=== PATIENT | female | born 1975 | race Caucasian/White ===

== ENCOUNTER 2016-08-14 09:58 | Outpatient (CLI) ==
[2014-12-02 00:26] VITALS: BMI 24.5
[2016-08-14 13:00] LABS: BASOPHILS % (AUTO) 0.6 % (0.0-3.0); EOSINOPHILS # (AUTO) 0.1 K/ul (0.0-0.7); HEMATOCRIT 34.9 % (37.0-47.0); HEMOGLOBIN 11.4 g/dl (12.0-16.0); IMMATURE GRANULOCYTE % (AUTO) 0.2 % (0.0-5.0); LYMPHOCYTES # (AUTO) 1.4 K/uL (0.60-3.4); LYMPHOCYTES % (AUTO) 20.7 (10.0-50.0); MEAN CORPUSCULAR HEMOGLOBIN 27.2 pg (27.0-31.0); MEAN CORPUSCULAR HGB CONC 32.7 (31.8-35.4); MEAN CORPUSCULAR VOLUME 83.3 fl (81.0-99.0); MONOCYTES # (AUTO) 0.3 K/uL (0.4-2.0); NEUTROPHILS # (AUTO) 4.7 K/ul (2.0-6.9); NEUTROPHILS % (AUTO) 71.5; PLATELET COUNT 234 10^3/uL (140-440); RED BLOOD COUNT 4.19 10^6/ul (4.20-5.40); WHITE BLOOD COUNT 6.56 K/ul (4.6-10.2)
[2016-08-14 13:53] LABS: ALBUMIN 3.8 g/dL (3.4-5.0); ALBUMIN/GLOBULIN RATIO 1.19; ANION GAP 11.8; BILIRUBIN,TOTAL 0.36 mg/dL (0.00-1.20); BUN/CREATININE RATIO 20.77; CALCIUM 9.1 mg/dL (8.2-10.2); CHOL/HDL RATIO 3.2 (4.5-5.5); CREATININE 0.77 mg/dL (0.60-1.30); POTASSIUM 3.8 mmol/L (3.5-5.10)
== END 2016-08-14 09:59 | disposition home or self-care (01) ==
LOC: LAB 09:58
PROVIDERS: ATTEND Nurse Practitioner Family
DX: I10 Essential (primary) hypertension (principal); E03.9 Hypothyroidism, unspecified
CPT/HCPCS: 36415; 80053; 80061; 84443; 85025

== ENCOUNTER 2016-08-25 12:21 | Emergency (ER) ==
[2016-08-25 12:34] VITALS: BP 176/95; TEMP 99.9; BMI 25.0
--- NOTE | 2016-08-25 12:45 | ED.PDOC ---
General ED Provider: Dr. LEONIDAS GRACE JR Chief Complaint: Hypertension Stated Complaint: HAVING BP PROBLEMS AND PCP IS TRYING TO STABLIZE HER WITH MEDICATION [ End ]99.9 65 16 98% 176/95 9/10 5AM ATE AND SIP OF [place]PS[place] THIS MORNIN Time Seen by Physician: 12:45 Mode of Arrival: Walk-In Information Source: Patient Exam Limitations: No limitations [facility] Triage Documentation Reviewed and Agree: No Review of Systems - Review Of Systems Constitutional: Reports: Malaise Eyes: Reports: Photophobia Ears, Nose, Mouth, Throat: Reports: No symptoms GI: Reports: No symptoms : Reports: No symptoms Musculoskeletal: Reports: No symptoms Skin: Reports: No symptoms Neurological: Reports: Headache Endocrine: Reports: No symptoms Hematologic/Lymphatic: Reports: No symptoms All Other Systems: Other Past Medical History - Past Medical History Endocrine: Reports: None Cardiovascular: Reports: None, Hypertension Respiratory: Reports: None Hematological: Reports: Anemia Gastrointestinal: Reports: None Genitourinary: Reports: None Neuro/Psych: Reports: Migraine, Anxiety, Depression, Bipolar Disorder Musculoskeletal: Reports: Back Pain (chronic from scoliosis) Cancer: Reports: None Last Menstrual Period: STARTED WEDNESDAY Other Pertinent Past Medical History: scoliosis - Surgical History General Surgical History: Reports: Other (D and C , bracing for scoliosis) - Family History Family History: Reports: Other (migrane ) - Social History Smoking Status: Current some day smoker Hx Substance Use: No Alcohol Screening: None - Immunizations Tetanus Shot up to Date: Yes Physical Exam - Physical Exam Appearance: Well-appearing Pain Distress: Moderate Eyes: REJI, EOMI, Conjunctiva clear ENT: Ears normal, Nose normal, Oropharynx normal Neck: Supple Respiratory: Airway patent, Breath sounds clear, Breath sounds equal, Respirations nonlabored Cardiovascular: RRR, Pulses normal, No rub, No murmur GI/: Soft, Nontender, No masses, Bowel sounds normal, No Organomegaly Musculoskeletal: Normal strength, ROM intact, No edema, No calf tenderness Skin: Warm, Dry, Normal color Neurological: Sensation intact, Motor intact, Reflexes intact, Cranial nerves intact, Alert, Oriented Psychiatric: Affect appropriate, Mood appropriate Critical Care Note - Critical Care Note Total Time (mins): 20 Course - Course Orders, Labs, Meds: Orders Category Date Time Status UA [URINALYSIS C & S IF INDICATED] Stat LAB 08/25/16 14:43 Ordered Hydrocodone Bit/Acetaminophen [Grady 7.5-325] MEDS 08/25/16 14:10 Discontinued 1 tab PO ONCE STA Labetalol HCl [Trandate] MEDS 08/25/16 12:59 Discontinued 100 mg PO ONCE STA Morphine Sulfate [Morphine 4 mg/ml Syringe] MEDS 08/25/16 13:03 Discontinued 4 mg IM ONCE STA Ondansetron HCl/Pf [Zofran 4 mg/2 ml] MEDS 08/25/16 13:03 Discontinued 4 mg IM ONCE STA CT HEAD W/O CONTRAST Stat RADS 08/25/16 13:03 Completed Medications Discontinued Medications Generic Name Dose Route Start Last Admin Trade Name Monse PRN Reason Stop Dose Admin Acetaminophen/Hydrocodone Bitart 1 tab 08/25/16 14:10 08/25/16 14:20 Grady 7.5-325 PO 08/25/16 14:11 1 tab ONCE STA Administration Labetalol HCl 100 mg 08/25/16 12:59 08/25/16 13:15 Trandate PO 08/25/16 13:00 100 mg ONCE STA Administration Morphine Sulfate 4 mg 08/25/16 13:03 08/25/16 13:18 Morphine 4 Mg/Ml Syringe IM 08/25/16 13:04 4 mg ONCE STA Administration Ondansetron HCl 4 mg 08/25/16 13:03 08/25/16 13:19 Zofran 4 Mg/2 Ml IM 08/25/16 13:04 4 mg ONCE STA Administration Vital Signs: Temp Pulse Resp BP Pulse Ox 08/25/16 12:26 99.9 F H 65 16 176/95 H 98 KARLA Risk Score KARLA Risk Score: Risk Score Odds of by 30D 0 0.1 (0.1-0.2) 1 0.3 (0.2-0.3) 2 0.4 (0.3-0.5) 3 0.7 (0.6-0.9) 4 1.2 (1.0-1.5) 5 2.2 (1.9-2.6) 6 3.0 (2.5-3.6) 7 4.8 (3.8-6.1) Departure - Departure Time of Disposition: 14:57 Disposition: HOME SELF-CARE Discharge Problem: Headache Qualifiers: Headache type: other complicated headache syndrome Qualifier Code: (G44.59) Other complicated headache syndrome Hypertension Qualifiers: Hypertension type: essential hypertension Qualifier Code: (I10) Essential ( primary) hypertension Instructions: Migraine Headache (ED), Chronic Hypertension (ED) Condition: Good Pt referred to PMD for follow-up: Yes Additional Instructions: hold lisinopril continue verapamil labetolol twice a day for blood pressure check blood pressure daily and record may try gabapentin for headaches may need to increase dose after two weeks-take only as needed Prescriptions: Gabapentin 300 mg PO TID PRN #30 capsule PRN Reason: PAIN Labetalol HCl [Trandate] 100 mg PO BID #60 tablet Allergies/Adverse Reactions: Allergies acetaminophen [From Tylenol PM] Adverse Reaction (Verified 08/25/16 12:36) diphenhydramine HCl [From Tylenol PM] Adverse Reaction (Verified 08/25/16 12:36) tramadol HCl [From Ultram] Adverse Reaction (Verified 08/25/16 12:36) Home Medications: Ambulatory Orders Promethazine HCl [Phenergan Tab] 25 mg PO Q6H PRN #15 tablet 12/02/14 Gabapentin 300 mg PO TID PRN #30 capsule 08/25/16 Labetalol HCl [Trandate] 100 mg PO BID #60 tablet 08/25/16
[2016-08-25] MEDS ORDERED: TRANDATE PO STA (12:59)
[2016-08-25] MEDS ORDERED: ZOFRAN 4 MG/2 ML IM STA (13:03)
[2016-08-25] MEDS ORDERED: MORPHINE 4 MG/ML SYRINGE IM STA (13:03)
--- NOTE | 2016-08-25 13:58 | CT ---
EXAM: CT of the head without contrast History: Headache. Comparison: Brain MRI 04/07/2013 Technique: Multiplanar CT images through the head were obtained without the administration of IV co ntrast Findings: The visualized paranasal sinuses and mastoid air cells are clear in general. No acute ca lvarial abnormalities. Intracranially the ventricular and cisternal spaces are normal in size, shape and configuration for a patient of this age. No dominant mass or midline shift. No hydrocephalous. No acute intracrania l hemorrhage or abnormal extraaxial fluid collections. Impression: No acute intracranial process.
[2016-08-25] MEDS ORDERED: NORCO 7.5-325 PO STA (14:10)
[2016-08-25 15:03] LABS: BILIRUBIN,URINE Negative (NEGATIVE); KETONES,URINE Trace (NEGATIVE); LEUKOCYTE ESTERASE ,URINE Negative (NEGATIVE); NITRITE,URINE Negative (NEGATIVE); PROTEIN,URINE Negative (NEGATIVE); URINE, BLOOD Negative (NEGATIVE)
[2016-08-25 15:18] LABS: ADD URINE MICROSCOPIC NO
== END 2016-08-25 15:50 | disposition home or self-care (01) ==
LOC: ED 12:21
DX: G44.59 Other complicated headache syndrome (principal); I10 Essential (primary) hypertension; F17.210 Nicotine dependence, cigarettes, uncomplicated; Z79.899 Other long term (current) drug therapy
CPT/HCPCS: 81001; 96372; 99283

== ENCOUNTER 2016-11-19 18:22 | Emergency (ER) ==
[2016-11-19 18:30] VITALS: BP 158/106; TEMP 99; BMI 25.9
[2016-11-19] MEDS ORDERED: MORPHINE 10 MG/ML SYRINGE IM STA (18:46)
--- NOTE | 2016-11-19 18:48 | ED.PDOC ---
General ED Provider: Dr. FABI LINDSEY Chief Complaint: Hypertension Stated Complaint: headache Time Seen by Physician: 18:30 Mode of Arrival: Walk-In Information Source: Patient Exam Limitations: No limitations Primary [facility] Nursing and Triage Documentation Reviewed and Agree: Yes Neurological Complaint Exam - Headache Complaint/Exam Onset: Gradual Duration: today Symptoms Are: Still present Timing: Intermittent Worst Headache Ever: No Initial Severity: Moderate Current Severity: Moderate Location: Right, Left, Frontal Character: Reports: Dull Aggravating: Reports: None Alleviating: Reports: None Associated Signs and Symptoms: Denies: Dizziness, Seizure, Nausea, Vomiting, Sinus pressure, Fever, Neck pain, Neck stiffness, Decreased LOC, Visual changes Related History: Reports: Similar episode Related Surgical History: Reports: None SAH Risk Factors: Reports: None Meningitis Risk Factors: Reports: None SDH Risk Factors: Reports: None Temporal Arteritis Risk Factors: Reports: None Normal Head CT Within Last 12 Months: No Papilledema Present: Yes Temporal Artery Tenderness: Present: None Sinus Tenderness: Present: None TMJ Tenderness: Present: None Glascow Coma Scale (see protocol): 15 Meningeal Signs Positive: No ROM Limited In: No Limitiations Focal Sensory Loss: Present: None Gait: Normal Nystagmus Present: No Gag Reflex Present: Yes [id number]: Normal Findings Babinski Sign: Negative Right, Negative Left Differential Diagnoses: Migraine Review of Systems - Review Of Systems Constitutional: Reports: No symptoms Eyes: Reports: No symptoms Ears, Nose, Mouth, Throat: Reports: No symptoms Respiratory: Reports: No symptoms Cardiac: Reports: No symptoms GI: Reports: No symptoms : Reports: No symptoms Musculoskeletal: Reports: No symptoms Skin: Reports: No symptoms Neurological: Reports: Headache Endocrine: Reports: No symptoms Hematologic/Lymphatic: Reports: No symptoms All Other Systems: Reviewed and Negative Past Medical History - Past Medical History Previously Healthy: Yes Endocrine: Reports: None Cardiovascular: Reports: None, Hypertension Respiratory: Reports: None Hematological: Reports: Anemia Gastrointestinal: Reports: None Genitourinary: Reports: None Neuro/Psych: Reports: Migraine, Anxiety, Depression, Bipolar Disorder Musculoskeletal: Reports: Back Pain (chronic from scoliosis) Cancer: Reports: None Last Menstrual Period: 11/17/16 Other Pertinent Past Medical History: scoliosis - Surgical History General Surgical History: Reports: Other (D and C , bracing for scoliosis) - Family History Family History: Reports: Other (migrane ) - Social History Smoking Status: Current some day smoker Hx Substance Use: No Alcohol Screening: None Physical Exam - Physical Exam Appearance: Well-appearing, No pain distress, Well-nourished Eyes: REJI, EOMI, Conjunctiva clear ENT: Ears normal, Nose normal, Oropharynx normal Respiratory: Airway patent, Breath sounds clear, Breath sounds equal, Respirations nonlabored Cardiovascular: RRR, Pulses normal, No rub, No murmur GI/: Soft, Nontender, No masses, Bowel sounds normal, No Organomegaly Musculoskeletal: Normal strength, ROM intact, No edema, No calf tenderness Skin: Warm, Dry, Normal color Neurological: Sensation intact, Motor intact, Reflexes intact, Cranial nerves intact, Alert, Oriented Psychiatric: Affect appropriate, Mood appropriate Critical Care Note - Critical Care Note Total Time (mins): 0 Course - Course Vital Signs: Temp Pulse Resp BP Pulse Ox 11/19/16 18:24 99.0 F 106 H 20 158/106 H 98 Departure - Departure Time of Disposition: 18:48 Disposition: HOME SELF-CARE Discharge Problem: Hypertension Headache Qualifiers: Headache type: unspecified Headache chronicity pattern: unspecified pattern Instructions: Hypertension (ED), Migraine Headache (ED) Condition: Good Pt referred to PMD for follow-up: Yes Allergies/Adverse Reactions: Allergies diphenhydramine HCl [From Tylenol PM] Adverse Reaction (Verified 08/25/16 12:36) tramadol HCl [From Ultram] Adverse Reaction (Verified 08/25/16 12:36) Home Medications: Ambulatory Orders Promethazine HCl [Phenergan Tab] 25 mg PO Q6H PRN #15 tablet 12/02/14 Gabapentin 300 mg PO TID PRN #30 capsule 08/25/16 Labetalol HCl [Trandate] 100 mg PO BID #60 tablet 08/25/16
== END 2016-11-19 19:18 | disposition home or self-care (01) ==
LOC: ED 18:22
DX: I10 Essential (primary) hypertension (principal); R51 Headache; F17.210 Nicotine dependence, cigarettes, uncomplicated
CPT/HCPCS: 96372; 99282

== ENCOUNTER 2016-11-20 11:43 | Outpatient (CLI) ==
[2016-11-19 18:30] VITALS: BMI 25.9
--- NOTE | 2016-11-20 13:32 | US ---
EXAM: Thyroid ultrasound History: Thyroid tenderness, enlarged thyroid. Technique: Multiple sonographic images through the thyroid gland were obtained. Color duplex Dopple r was used to interrogate vascular flow. Findings: The right lobe of the thyroid measures 4.0 cm x 2.0 cm x 1.1 cm. No right thyroid nodules identified. The thyroid isthmus measures 0.2 cm in thickness. The left lobe of the thyroid measures 4.1 cm x 1.4 cm x 1.0 cm. No left thyroid nodules identified. No extrathyroidal masses. The thyroid gland is not hypervascular. Impression: Normal thyroid ultrasound.
== END 2016-11-20 11:44 | disposition home or self-care (01) ==
LOC: RAD 11:43
PROVIDERS: ATTEND Physician Assistant
DX: M54.2 Cervicalgia (principal); I10 Essential (primary) hypertension
CPT/HCPCS: 93005; 93010

== ENCOUNTER 2016-11-23 06:33 | Outpatient (CLI) ==
--- NOTE | 2016-11-23 08:22 | ECHO2D ---
Date of Exam: 11/23/16 Ordering Physician: FRANCISCO MUJICA Room #: OP Reason for Echo: HYPERTENSIVE DISORDER M-Mode Normal Adult Results LV Dimensions Normal Adult Results AoV Opening excursions >1.6 >1.6 LVEDD-base- 3.5-5.8 4.3 Ao root dimensions 2.0-3.7 3.7 LVESD-base- 3.1-4.6 L. Atrium dimensions 1.9-3.8 3.1 Post. Wall thickness 0.8-1.1 1.2 IV septum (thickness) 0.7-1.2 1.2 Post. Wall excursion 0.72-1.3 NORMAL Septal motion NORMAL Systolic motion R. Ventricular cavity 1.5-2.0 NORMAL LVEF 60% 50-55% Paradoxical septal wall motion NORMAL 2-D : 2-D M Mode Echocardiogram was performed using apical four chamber and left parasternal long and short axis views. Mitral, tricuspid and aortic valves appear to be normal. Contractility of the left ventricle seems to be normal, so is the cavity size. Left atrial cavity size and aortic root appear to be normal. There is no pericardial effusion. There is no thrombus noted in the left ventricular or left aortic cavity. No mitral valve prolapse noted. M-MODE: MV: NORMAL AV: NORMAL TV: NORMAL PV: CHAMBER SIZE: NORMAL WALL MOTION: NORMAL PERICARDIUM: NORMAL INTERPRETATION: 1. BORDERLINE LEFT VENTRICULAR HYPERTROPHY 2. NORMAL LEFT VENTRICULAR CONTRACTILITY 3. NORMAL VALVES 4. NORMAL LEFT ATRIAL AND LEFT VENTRICLE SIZE MTDD
== END 2016-11-23 06:34 | disposition home or self-care (01) ==
LOC: CAR 06:33
PROVIDERS: ATTEND Physician Assistant
DX: I10 Essential (primary) hypertension (principal)

== ENCOUNTER 2017-05-05 08:46 | Outpatient (CLI) | END 2017-05-05 08:47 | disposition home or self-care (01) | LOC: LAB 08:46 | PROVIDERS: ATTEND Internal Medicine Endocrinology, Diabetes & Metabolism | DX: R35.8 Other polyuria (principal); R53.83 Other fatigue; R61 Generalized hyperhidrosis; I10 Essential (primary) hypertension; T14.8XXA Other injury of unspecified body region, initial encounter | CPT/HCPCS: 36415; 81001; 82670; 83001; 83002; 83036; 84439; 84443 ==

== ENCOUNTER 2017-05-12 13:53 | Outpatient (CLI) | END 2017-05-12 13:54 | disposition home or self-care (01) | LOC: LAB 13:53 | PROVIDERS: ATTEND Internal Medicine Endocrinology, Diabetes & Metabolism | DX: T14.8XXA Other injury of unspecified body region, initial encounter (principal) | CPT/HCPCS: 36415 ==

== ENCOUNTER 2017-08-20 19:57 | Outpatient (CLI) | END 2017-08-20 19:58 | disposition home or self-care (01) | LOC: LAB 19:57 | PROVIDERS: ATTEND Physician Assistant | DX: F33.9 Major depressive disorder, recurrent, unspecified (principal); Z51.81 Encounter for therapeutic drug level monitoring; Z79.899 Other long term (current) drug therapy | CPT/HCPCS: 36415; 80335; 93005; 93010 ==

== ENCOUNTER 2017-12-09 08:25 | Outpatient (CLI) | END 2017-12-09 08:26 | disposition home or self-care (01) | LOC: CAR 08:25 | PROVIDERS: ATTEND Physician Assistant | DX: Z51.81 Encounter for therapeutic drug level monitoring (principal) | CPT/HCPCS: 36415; 80053; 80178; 84443; 85025; 93005; 93010 ==

== ENCOUNTER 2017-12-31 14:39 | Outpatient (CLI) ==
--- NOTE | 2017-12-31 15:35 | DI ---
EXAM: PA and lateral views of the chest HISTORY: Cough. COMPARISON: Chest x-ray 05/30/2015 FINDINGS: The cardiomediastinal silhouette is normal. There is no pneumothorax or pleural effusion. There is no consolidation, nodule or mass. The osseous structures are unremarkable. IMPRESSION: No acute cardiopulmonary process
== END 2017-12-31 14:40 | disposition home or self-care (01) ==
LOC: RAD 14:39
PROVIDERS: ATTEND Physician Assistant
DX: R05 Cough (principal)

== ENCOUNTER 2018-03-17 10:11 | Outpatient (CLI) | END 2018-03-17 10:12 | disposition home or self-care (01) | LOC: LAB 10:11 | PROVIDERS: ATTEND Physician Assistant | DX: R19.7 Diarrhea, unspecified (principal); Z79.899 Other long term (current) drug therapy | CPT/HCPCS: 36415; 80053; 80178; 85025 ==

== ENCOUNTER 2018-03-18 13:00 | Outpatient (CLI) | END 2018-03-18 13:01 | disposition home or self-care (01) | LOC: LAB 13:00 | PROVIDERS: ATTEND Physician Assistant | DX: R19.7 Diarrhea, unspecified (principal); Z79.899 Other long term (current) drug therapy | CPT/HCPCS: 87015; 87045; 87177; 87493; 87899; 89055 ==

== ENCOUNTER 2018-03-25 09:03 | Outpatient (CLI) ==
--- NOTE | 2018-03-25 10:03 | US ---
EXAM: Limited abdominal ultrasound History: Right lower quadrant abdominal pain. Technique: Multiple sonographic images through the abdomen were obtained. Color duplex Doppler was used to interrogate vascular flow. Findings / impression: Limited evaluation due to obscuration by bowel gas. The appendix was not florian ntified. No obvious fluid collections.
== END 2018-03-25 09:04 | disposition home or self-care (01) ==
LOC: RAD 09:03
PROVIDERS: ATTEND Physician Assistant
DX: R10.31 Right lower quadrant pain (principal)

== ENCOUNTER 2018-07-27 09:14 | Outpatient (CLI) ==
--- NOTE | 2018-07-27 10:05 | DI ---
EXAM: Two views of the left ankle. History: Left ankle pain. Findings: No acute fracture or dislocation. No abnormal calcifications or radiopaque foreign bodies . Joint spaces are preserved. Mild subcutaneous edema at the ankle. Impression: No acute osseous abnormality.
--- NOTE | 2018-07-27 10:54 | DI ---
EXAM: Two views of the left foot. History: Left foot pain. Findings / impression: Seen only on the lateral view there is a small osseous density seen over the dorsal mid foot. Correlate with point tenderness for possible fracture. No fracture lines are seen. No dislocation. Mild diffuse subcutaneous edema.
== END 2018-07-27 09:15 | disposition home or self-care (01) ==
LOC: RAD 09:14
PROVIDERS: ATTEND Nurse Practitioner Family
DX: M79.672 Pain in left foot (principal); M25.572 Pain in left ankle and joints of left foot

== ENCOUNTER 2018-07-28 08:58 | Emergency (ER) ==
[2018-07-28 09:07] VITALS: BP 130/82; TEMP 98.6; BMI 32.2
--- NOTE | 2018-07-28 09:19 | ED.PDOC ---
General ED Provider: Dr. FABI LINDSEY Chief Complaint: Foot Pain/Injury Stated Complaint: left foot and ankle pain questional foot fx as out pt 1 day ago returns for a recheck Time Seen by Physician: 09:00 (seen with ankush) Mode of Arrival: Walk-In Information Source: Patient Exam Limitations: No limitations Primary Care Provider: FARSHAD GORDON Nursing and Triage Documentation Reviewed and Agree: Yes Does patient meet sepsis criteria?: No System Inflammatory Response Syndrome: Not Applicable Sepsis Protocol: For patient's 13 years and over: Temp is 96.8 and below OR 101 and greater Pulse >90 BPM Resp >20/minute Acutely Altered Mental Status Are patient's symptoms suggestive of a new infection, such as: -Pneumonia -Skin, Soft Tissue -Endocarditis -UTI -Bone, Joint Infection -Implantable Device -Acute Abdominal Infection -Wound Infection -Meningitis -Blood Stream Catheter Infection -Unknown Musculoskeletal Complaint Exam - Ankle/Foot Complaint/Exam Location of Injury: Reports: Left, Ankle, Foot Mechanism of Injury: Reports: No known trauma Onset/Duration: 1 day Symptoms Are: Reports: Still present Onset of Pain: Reports: Hours Initial Severity: Mild Current Severity: Mild Location: Reports: Discrete (left lateral ankle ) Character: Reports: Aching Alleviating: Reports: Rest Aggravating: Reports: Movement Able to Bear Weight: Yes Associated Signs and Symptoms: Denies: Swelling, Redness, Bruising, Fever, Weakness, Numbness, Tingling Gout Risk Factors: Reports: None Related Surgical History: Reports: None Lower Extremity Findings: Present: Tenderness (lateral ankle only). Absent: Swelling, Ecchymosis, Abnormal contour, Rotation, Ligamentous instability, Laceration, Erythema, Warmth, Blisters, Other joint pain, Foreign body Tenderness: Present: Lateral malleolus Differential Diagnosis: Closed Fracture, Sprain, Strain Review of Systems - Review Of Systems Constitutional: Reports: No symptoms Eyes: Reports: No symptoms Ears, Nose, Mouth, Throat: Reports: No symptoms Respiratory: Reports: No symptoms Cardiac: Reports: No symptoms GI: Reports: No symptoms : Reports: No symptoms Musculoskeletal: Reports: Joint pain (ankle left side ) Skin: Reports: No symptoms Neurological: Reports: No symptoms Endocrine: Reports: No symptoms Hematologic/Lymphatic: Reports: No symptoms All Other Systems: Reviewed and Negative Past Medical History - Past Medical History Previously Healthy: Yes Endocrine: Reports: None Cardiovascular: Reports: None, Hypertension Respiratory: Reports: None Hematological: Reports: Anemia Gastrointestinal: Reports: None Genitourinary: Reports: None Neuro/Psych: Reports: Migraine, Anxiety, Depression, Bipolar Disorder Musculoskeletal: Reports: Back Pain (chronic from scoliosis) Cancer: Reports: None Last Menstrual Period: STARTED July Other Pertinent Past Medical History: scoliosis - Surgical History General Surgical History: Reports: Other (D and C , bracing for scoliosis) - Family History Family History: Reports: Other (migrane ) - Social History Smoking Status: Current every day smoker Hx Substance Use: No Alcohol Screening: Occasionally Physical Exam - Physical Exam Appearance: Well-appearing, No pain distress, Well-nourished Eyes: REJI, EOMI, Conjunctiva clear ENT: Ears normal, Nose normal, Oropharynx normal Respiratory: Airway patent, Breath sounds clear, Breath sounds equal, Respirations nonlabored Cardiovascular: RRR, Pulses normal, No rub, No murmur GI/: Soft, Nontender, No masses, Bowel sounds normal, No Organomegaly Musculoskeletal: Normal strength, ROM intact, No edema, No calf tenderness Skin: Warm, Dry, Normal color Neurological: Sensation intact, Motor intact, Reflexes intact, Cranial nerves intact, Alert, Oriented Psychiatric: Affect appropriate, Mood appropriate Interpretation - Radiology Interpretation Radiology Interpretation By: Radiologist Radiology Results: Positive (question fx left foot) Critical Care Note - Critical Care Note Total Time (mins): 0 Course - Course Vital Signs: Temp Pulse Resp BP Pulse Ox 07/28/18 08:59 98.6 F 80 18 130/82 98 Departure - Departure Time of Disposition: 09:19 Disposition: HOME SELF-CARE Discharge Problem: Injury of foot Ankle pain, left Qualifiers: Chronicity: acute Qualified Code(s): M25.572 - Pain in left ankle and joints of left foot Instructions: Arthralgia (ED) Condition: Good Pt referred to PMD for follow-up: Yes IPMP verified?: No Additional Instructions: Please call your Family Physician as soon as possible to schedule a follow-up appointment. your pain is in the ankle area which x ray does not show a broken bone however , there is a questionable tiny fracture in the foot but , you did not have any point tenderness over the problem area during the exam. please keep the air cast on use crutches and see your doctor MARCIANO Allergies/Adverse Reactions: Allergies diphenhydramine HCl [From Tylenol PM] Adverse Reaction (Verified 08/25/16 12:36) tramadol HCl [From Ultram] Adverse Reaction (Verified 08/25/16 12:36) Home Medications: Ambulatory Orders Promethazine HCl [Phenergan Tab] 25 mg PO Q6H PRN #15 tablet 12/02/14 Gabapentin 300 mg PO TID PRN #30 capsule 08/25/16 Labetalol HCl [Trandate] 100 mg PO BID #60 tablet 08/25/16
== END 2018-07-28 09:37 | disposition home or self-care (01) ==
LOC: ED 08:58
DX: M25.572 Pain in left ankle and joints of left foot (principal); F17.210 Nicotine dependence, cigarettes, uncomplicated
CPT/HCPCS: 99282

== ENCOUNTER 2018-08-18 10:23 | Outpatient (CLI) ==
--- NOTE | 2018-08-19 10:38 | MAMMO ---
EXAM: Bilateral digital screening mammogram (2-D and 3-D) History: Baseline screening Findings: MLO and CC views of bilateral breasts demonstrate scattered fibroglandular breast parenchy ma. CAD was reviewed by the radiologist. Tomosynthesis was performed. There are no dominant masses , no suspicious microcalcifications and no architectural distortions Impression: Negative mammogram. Recommend followup routine screening mammography in 1 year. BI-RADS 1, negative
== END 2018-08-18 10:24 | disposition home or self-care (01) ==
LOC: RAD 10:23
PROVIDERS: ATTEND Nurse Practitioner Family
DX: Z12.31 Encounter for screening mammogram for malignant neoplasm of breast (principal)

== ENCOUNTER 2018-11-15 08:07 | Outpatient (CLI) | END 2018-11-15 08:08 | disposition home or self-care (01) | LOC: CAR 08:07 | PROVIDERS: ATTEND Nurse Practitioner Family | DX: I45.81 Long QT syndrome (principal) | CPT/HCPCS: 93005; 93010 ==